=== PATIENT | male | born 1965 | race African-American/Black ===

== ENCOUNTER 2016-09-12 17:57 | Emergency (ER) | payer MEDICAID ==
[2016-09-12] MEDS ORDERED: NO MEDICATIONS (18:09)
[2016-09-12] MEDS ORDERED: VOLTAREN75 MG (19:08)
== END 2016-09-12 19:14 | disposition home or self-care (01) ==
LOC: SED 17:57
DX: M54.42 Lumbago with sciatica, left side (principal); Z98.890 Other specified postprocedural states
CPT/HCPCS: 96374; 99283; J1885